=== PATIENT | male | born 1930 | race African-American/Black ===

== ENCOUNTER 2018-12-04 20:53 | Emergency (ER) | payer OTHER ==
[~2018-12-04] VITALS: Ht 180.3 cm; Wt 78.0 kg
[2018-12-04 21:04] VITALS: Ht 180.3 cm; Wt 78.0 kg
[2018-12-04] MEDS ORDERED: AZITHROMYCIN 500MG/NS (PMX) 250 ML IV STA (22:01)
[2018-12-04] MEDS ORDERED: CEFTRIAXONE 1 GM/50 ML (PMX) 50 ML IVPB STA (22:01)
[2018-12-04] MEDS ORDERED: SOD CHLORIDE 0.9% 1,000 ML IV STA (22:02)
[2018-12-04] MEDS ORDERED: TIOT18CA INHALATION (23:18)
[2018-12-04] MEDS ORDERED: ATOR40TA68 PO (23:18)
[2018-12-04] MEDS ORDERED: SULF-182 PO (23:18)
[2018-12-04] MEDS ORDERED: AMLO2.5T78 PO (23:18)
[2018-12-04] MEDS ORDERED: IBUP-1541 PO (23:18)
[2018-12-04] MEDS ORDERED: ADV50050 INHALATION (23:18)
[2018-12-05 01:34] VITALS: BP 116/67; PULSE 84; RESP 20
--- NOTE | 2019-01-08 02:03 | ERD ---
ER Documentation Chief Complaint Chief Complaint cough, coarse LS, hot to touch, forgetful today. oriented x 3 now. HPI This 88-year-old male brought in by rescue with complaint of cough coarse lung sounds and hot to touch. Patient is alert and oriented x3, but he was more forgetful today than normal. Denies any nausea vomiting. Denies any chest pain. Denies any other current issues. ROS All systems reviewed and are negative except as per history of present illness. Medications Home Meds Reported Medications Tiotropium [place]* (Spiriva*) 18 Mcg Cap.w.dev, 1 CAP INHALATION DAILY, #30 CAP 12/04/18 Salmeterol Xinaf-Fluticasone* (Advair*) 500/50 Diskus Inhaler, 1 INH INHALATION BID, #1 INHALER 12/04/18 Atorvastatin* (Atorvastatin*) 40 Mg Tablet, 40 MG PO QHS for 30 Days, #30 TAKE I TABLET BY MOUTH AT BEDTIME 12/04/18 Amlodipine Besylate* (Amlodipine Besylate*) 2.5 Mg Tablet, 2.5 MG PO DAILY for 30 Days, #30 TAKE 1 TABLET BY MOUTH DAILY 12/04/18 Sulfamethoxazole/Trimethoprim (Sulfamethoxazole-Tmp Ds Tablet) 1 Each Tablet, 1 EACH PO, TAB 12/04/18 Ibuprofen* (Ibuprofen*) 400 Mg Tablet, 400 MG PO Q6H PRN for PAIN, TAB 12/04/18 Allergies Allergies: Coded Allergies: No Known Allergy (Unverified , 12/04/18) PMhx/Soc History of Surgery: Yes (RIGHT KNEE ) Anesthesia Reaction: No Hx Neurological Disorder: No Hx Respiratory Disorders: Yes (ASTHMA ) Hx Cardiac Disorders: Yes (HTN, HYPERLIPIDEMIA ) Hx Psychiatric Problems: No Hx Miscellaneous Medical Probl: Yes (DM II) Hx Alcohol Use: Yes Hx Substance Use: No Hx Tobacco Use: No Smoking Status: Never smoker Physical Exam Physical Exam Const: No acute distress Head: Atraumatic Eyes: Normal Conjunctiva ENT: Normal External Ears, Nose and Mouth. Neck: Full range of motion. No meningismus. Resp: Clear to auscultation bilaterally Cardio: Regular rate and rhythm, no murmurs Abd: Soft, non tender, non distended. Normal bowel sounds Skin: No petechiae or rashes Back: No midline or flank tenderness Ext: No cyanosis, or edema Neur: Awake and alert Psych: Normal Mood and Affect Results 24 hrs Laboratory Tests Test 12/04/18 21:00 12/04/18 21:15 White Blood Count 18.0 10^3/ul Red Blood Count 4.25 10^6/ul Hemoglobin 12.3 g/dl Hematocrit 37.9 % Mean Corpuscular Volume 89.2 fl Mean Corpuscular Hemoglobin 28.9 pg Mean Corpuscular Hemoglobin Concent 32.5 g/dl Red Cell Distribution Width 12.9 % Platelet Count 322 10^3/UL Mean Platelet Volume 9.6 fl Immature Granulocytes % 1.100 % Neutrophils % 69.6 % Lymphocytes % 22.3 % Monocytes % 6.7 % Eosinophils % 0.1 % Basophils % 0.2 % Nucleated Red Blood Cells % 0.0 /100WBC Immature Granulocytes # 0.190 10^3/ul Neutrophils # 12.6 10^3/ul Lymphocytes # 4.0 10^3/ul Monocytes # 1.2 10^3/ul Eosinophils # 0.0 10^3/ul Basophils # 0.0 10^3/ul Nucleated Red Blood Cells # 0.0 10^3/ul Prothrombin Time 15.5 Sec Prothrombin Time Ratio 1.2 INR International Normalized Ratio 1.22 Activated Partial Thromboplast Time 29.2 Sec Sodium Level 136 mmol/L Potassium Level 3.8 mmol/L Chloride Level 99 mmol/L Carbon Dioxide Level 24 mmol/L Anion Gap 13 Blood Urea Nitrogen 14 mg/dl Creatinine 0.86 mg/dl Est Glomerular Filtrat Rate mL/min mL/min Glucose Level 143 mg/dl Calcium Level 8.9 mg/dl Total Bilirubin 0.6 mg/dl Direct Bilirubin 0.00 mg/dl Indirect Bilirubin 0.6 mg/dl Aspartate Amino Transf (AST/SGOT) 40 IU/L Alanine Aminotransferase (ALT/SGPT) 19 IU/L Alkaline Phosphatase 91 IU/L Troponin I 0.019 ng/ml Total Protein 6.9 g/dl Albumin 3.4 g/dl Globulin 3.50 g/dl Albumin/Globulin Ratio 0.97 POC Venous Lactate 1.7 mmol/L Current Medications Medications Dose Sig/Paul Start Time Status Last (Trade) Ordered Route PRN Stop Time Admin Dose Reason Admin Azithromycin 250 ml @ ONCE STAT 12/04/18 DC 12/04/18 250 mls/hr IV 22:01 12/04/18 23:36 23:00 Ceftriaxone 50 ml @ ONCE STAT 12/04/18 DC 12/04/18 Sodium 100 mls/hr IVPB 22:01 12/04/18 22:33 22:30 Sodium 1,000 ml @ Q1H STAT 12/04/18 DC 12/04/18 Chloride 1,000 mls/hr IV 22:02 12/04/18 22:32 23:01 Procedures/MDM Emergency department course: Patient developed retractions. Sepsis workup initiated. Has had increased chest x-ray. Was given antibiotics post cultures. Diagnostic studies: EKG: Rate/Rhythm: [Normal Sinus Rhythm] QRS, ST, T-waves: [No changes consistent w/ acute ischemia] Impression: [No evidence of ischemia or arrhythmia] Chest X-ray 1V Interpreted by me: Soft Tissue: No acute abnormalities Bones: No acute abnormalities Mediastinum/Cardiac Silhouette/Lungs: Infiltrates in the right and left lung castillo suggestive of pneumonia Medical decision makin-year-old male bilateral pneumonia. Patient is stable for transfer to the [facility] center of choice was [facility]. Departure Diagnosis: Primary Impression: Cough Condition: Stable LEI LOREDO Jan 08, 2019 02:03
== END 2018-12-05 01:50 | disposition short-term general hospital (02) ==
LOC: E/R 20:53
DX: R05 Cough (principal); I10 Essential (primary) hypertension; E11.9 Type 2 diabetes mellitus without complications; J45.909 Unspecified asthma, uncomplicated; R10.9 Unspecified abdominal pain
CPT/HCPCS: 71045; 80053; 83605; 84484; 85025; 85610; 85730; 87040; 93005; J0456; J0696; J7030; 36415; 96361; 96365; 96375